=== PATIENT | male | born 1990 | race Caucasian/White ===

== ENCOUNTER 2016-04-30 01:56 | Emergency (ER) | payer OTHER ==
--- NOTE | 2016-04-30 06:44 | ER ---
ADMIT: 04/30/2016 RM/LOC: [facility] MR#: [id number] [address] [id number] ELINA DODSON [address] [place] [address] Emergency Room Report SEX: M AGE: 25 : 1990 DATE: 04/30/2016 The patient is a 25-year-old [facility], exposed to organophosphate fumes and possible spillage [place] Denies any respiratory distress, headache, nausea, rhinorrhea, vomiting, diarrhea, urinary symptoms or lightheadedness. Exam remarkable for nontoxic, afebrile male. No acute distress. Though does smell of organophosphates. Patient was showered, clothes discarded, clean clothes given. Follow up Dr. Walls as needed. Wade Donaldson MD/ lc JOB #: [id number] CC: Wade Donaldson MD, Attending Physician Chau Walls MD, Family Physician Chau Walls MD
== END 2016-04-30 02:35 | disposition home or self-care (01) ==
LOC: ER 01:56
DX: Z77.098 Contact with and (suspected) exposure to other hazardous, chiefly nonmedicinal, chemicals (principal); Z88.2 Allergy status to sulfonamides